=== PATIENT | male | born 1950 | race Caucasian/White ===

== ENCOUNTER → 2018-02-09 09:31 | Outpatient (CLI) | payer MEDICARE, SELFPAY ==
--- NOTE | 2018-02-09 09:35 | CT_ITS ---
EXAM: CT LUNG LOW DOSE WO CONTRAST COMPARISON: Only a 2 view chest 07/21/2017 HISTORY: At least 1 pack a day for 30 years.. = Over 30 pack-year history States that quit smoking 7 years ago FINDINGS: Indeterminate or Suspicious Lung Nodules(Category3-4B): None Indeterminate/Non-actionable Nodules(Category2): None LUNG PARENCHYMA No suspicious mass or nodule. No Lung RADS Category2,3, or 4 foci There are BENIGN APPEARING NODULES (Lung RADS Category: 1) .Benign calcified granuloma at L UL axial slice 25 measuring less than 3 mm but not of concern. There is also a tiny calcified granuloma at the RUL anteriorly measuring less than 3 mm. Axial slice 31 with minimal scarring posterior to this. Density centrally here up to nearly over 200HU reflects calcification There is linear scarring and/or atelectasis seen towards the lung bases bilaterally most evident posteriorly. Imaging towards posterior sulcus.. No significant interstitial fibrotic changes otherwise Minor centrilobular emphysematous changes Airways disease: Minor airway thickness centrally. No intrabronchial lesion . Mediastinum. No significant adenopathy. Scattered small nodes in mediastinum. Small calcified nodes at the left subcarinal region reflects overload disease as well as other smaller calcified node at left arturo. The hilar regions there is a 12 x 8 mm node anterior branch point of right arturo, axial image 34 coronal and sagittal slice 38.. It contains central lucency in normal reniform appearance particularly on the sagittal view. Tend to favor benign or reactive nodes this point. Follow up10-12 months adequate. HEART: normal size with very extensive coronary artery calcification throughout the LAD, circumflex and to lesser degree are CTA and first a wall.. Clearly would yield a very high CT calcium scoring. Consider further cardiac evaluation . Great vessels appear satisfactory . Minimal calcification Pleura: Unremarkable. No pleural thickening or lesions. Uppermost abdomen. Left adrenal enlargement. Appears to be a low-density nonfunctioning adenomaon with left adrenal measuring up to 27 mm transverse x 16mm x 25 mm height mm AP . -10 HU density =====IMPRESSION:====== 1. Lung RADS Category: 1 Benign-appearing calcified granulomatous nodules upper lobes bilateral. Not of concern 2. No suspicious lung nodule or mass. 3. Moderate size benign-appearing lymph node right arturo but noted. I believe follow-up and not over one year adequate 4. Linear scarring and atelectasis at lung bases. Borderline to mild thickening central airways. Only scant Minor emphysematous changes 5.. Low density left adrenal nodule. Up to 2.5 cm. Most compatible benign nonfunctioning adenoma 6...*Extensive coronary artery calcification noted. high calcified plaque burden coronary arteries, reflects high risk significant CAD. RECOMMENDATIONS: 10- 12 monthd LDCT follow-upRecommended and should be encouraged to confirm baseline Further cardiac evaluation to be considered RADIATION DOSE: CTDI vol(CT dose Index-volume) = 2.9mGy DLP (Dose Length Product) = 104.61 mGy-cm TECHNIQUE: The exam was performed on a [employer] Speed [address] scanner using 3.0 mGy CTDI. A low dose helical CT CHEST was performed on a multi-detector scanner. All CT scans at this facility use one or more dose reduction techniques, viz.: automated exposure control; ma/kV adjustment per patient size (including targeted exams where dose is matched to indication; i.e. head) or iterative reconstruction technique. The LDCT was performed in a facility that meets the criteria for the screening program. Data regarding this exam was submitted to [employer] which is an approved registry. The order for this
== END ==
PROVIDERS: Family Provider Family Medicine; PCP Family Medicine; Visit Provider Family Medicine
DX: Z87.891 Personal history of nicotine dependence (principal); Z12.2 Encounter for screening for malignant neoplasm of respiratory organs; Z72.0 Tobacco use

== ENCOUNTER → 2020-08-05 16:23 | Outpatient (CLI) | payer MEDICARE, SELFPAY ==
--- NOTE | 2020-08-05 16:29 | XR_ITS ---
PROCEDURE: XR KNEE RT 3V CLINICAL INDICATION: HYPERURICEMIA Chronic right knee pain COMPARISON: No exams were available for comparison FINDINGS: No fracture or dislocation. No lytic or blastic change. There is normal mineralization. Are [id number] osteoarthritic changes with greatest involvement at the medial compartment with chondrocalcinosis of the medial lateral compartment. There is an extra calcific density along the medial aspect of the medial femoral condyle which could be related to an old injury or soft tissue calcification. Other findings:None. IMPRESSION: Degenerative changes as described above with chondrocalcinosis and possible old fracture or soft tissue calcification at the medial femoral condyle Dictated by: Wagner Rosales MD 08/05/2020 16:49 Wagner Rosales MD in [place] 08/05/2020 16:49
== END ==
PROVIDERS: PCP Family Medicine; Visit Provider Family Medicine
DX: E79.0 Hyperuricemia without signs of inflammatory arthritis and tophaceous disease (principal)
CPT/HCPCS: 73562